=== PATIENT | male | born 1990 | race Caucasian/White ===

== ENCOUNTER 2020-01-09 17:14 | Emergency (ER) | payer SELFPAY ==
[2020-01-09 17:40] VITALS: BP 138/118; PULSE 105; RESP 18; TEMP 36.6; O2SAT 99; BMI 30.9
== END 2020-01-09 19:07 | disposition left against medical advice (07) ==
LOC: ER 17:31
PROVIDERS: Emergency Provider Emergency Medicine
DX: Z53.21 Procedure and treatment not carried out due to patient leaving prior to being seen by health care provider (principal)
CPT/HCPCS: 99281